=== PATIENT | female | born 1975 | race Caucasian/White ===

== ENCOUNTER → 2019-11-27 | Outpatient (CLI) | payer OTHER ==
--- NOTE | 2019-11-27 16:33 | RAD ---
Examination: 1. Bilateral digital diagnostic mammogram. 2. Limited breast ultrasound. INDICATION: 44-year-old woman with palpable lump in the left breast. She is due for screening. Does not recall where her last screening mammogram was. COMPARISON: None currently available. TECHNIQUE: CC and MLO views of both breasts were obtained with 2-D technique and reviewed with computer-aided detection. Thereafter, targeted ultrasound of the area of patient reported palpable concern was performed. FINDINGS: The breasts are extremely dense. This can limit the sensitivity of mammography. There is a nodular parenchymal pattern compatible with benign fibrocystic change. No definite correlate to the area of reported palpable concern is identified at mammography. No dominant mass, suspicious microcalcifications or architectural distortion is identified. Right breast is otherwise mammographically unremarkable. Left breast was pursued for additional imaging with targeted ultrasound. Ultrasound left breast identifies a few small clusters of cysts, such as an 8 mm wide cluster of cysts at the left 12:00 position 5 cm from the nipple that likely is a benign incidental finding. No sonographic correlate to the area of palpable concern was observed. The breast parenchyma is largely composed of dense fibrous tissue. IMPRESSION: Benign findings on targeted left breast ultrasound and bilateral mammogram. No mammographic evidence of malignancy and no sonographic or mammographic correlate to the area of palpable concern. Recommend clinical management of this area, including biopsy if there are any clinically suspicious findings. A surgical consult could certainly be pursued based on the clinical findings alone if deemed clinically appropriate by the patient's referring provider. In the absence of any clinical suspicious findings, routine screening in 1 year is recommended. BI-RADS Category 2 Benign findings Patient will be entered into a reminder system with target due date for next mammogram. BI-RADS 2 -- benign findings
== END | disposition home or self-care (01) ==
LOC: MAMMO 12:53 → EEVIPCON 12:53
PROVIDERS: ATTEND Preventive Medicine Occupational Medicine
DX: N60.02 Solitary cyst of left breast (principal); R92.2 Inconclusive mammogram
CPT/HCPCS: 76641; 77066

== ENCOUNTER → 2020-12-29 | Outpatient (CLI) | payer OTHER ==
--- NOTE | 2020-12-29 13:58 | RAD ---
EXAM: Bilateral screening mammogram. HISTORY: 45-year-old female presents for screening mammography. TECHNIQUE: Full-field digital craniocaudal and mediolateral oblique views of both breasts are obtaine d for evaluation. Computer aided detection was applied. COMPARISON: 11/27/2019 BREAST PARENCHYMAL DENSITY: Level D - Extremely dense. FINDINGS: There is no new suspicious mass, microcalcification or region of architectural distortion. There are stable areas of asymmetry and nodularity within both breasts, allowing for differences in t echnique. IMPRESSION: BI-RADS Category 2: Benign finding(s). RECOMMENDATION: Annual mammography is recommended. If your mammogram demonstrates that you have dense breast tissue, which could hide abnormalities, and if you have other risk factors for breast cancer that have been identified, you might benefit from s upplemental screening tests that may be suggested by your ordering physician. Dense breast tissue, i n and of itself, is a relatively common condition. This information is not provided to cause undue c oncern, but rather to raise your awareness and to promote discussion with your physician regarding th e presence of other risk factors, in addition to dense breast tissue. A report of your mammography re sults will be sent to you and your physician. You should contact your physician if you have any ques tions or concerns regarding this report. Mammography is a sensitive method for finding small breast cancers, but it does not detect them all a nd is not a substitute for careful clinical examination. A negative mammogram does not negate a clin ically suspicious finding and should not result in delay in biopsying a clinically suspicious abnorma lity. PQRS compliance statement - Patient information was entered into a reminder system with a target due date for the next mammogram. "Our facility is accredited by the [employer] Mammography [employer]." Electronically signed by: Kaitlynn Santizo MD (12/29/2020 1:56 PM) [id number]
== END ==
LOC: MAMMO 12:44
PROVIDERS: ATTEND Preventive Medicine Occupational Medicine
DX: Z12.31 Encounter for screening mammogram for malignant neoplasm of breast (principal)
CPT/HCPCS: 77067